=== PATIENT | male | born 1990 | race Caucasian/White ===

== ENCOUNTER 2016-08-18 19:52 | Emergency (ER) | payer MEDICAID ==
[2016-08-18 20:00] VITALS: BP 112/71; BMI 18.6
--- NOTE | 2016-08-18 20:30 | DR.GENAD ---
HPI - PCP Primary Care Physician: MARIANO - HPI Comment HPI Comment: PATIENT HAVING EPIGASTRIC AND RUQ ABDOMINAL PAIN RADIATING TO THE BACK FOR 4 DAYS THAT IS WORSE TODAY. VOMITUS IS GREENISH COLOR. NO FEVER. SYMTOM SIMILAR TO HIS MOTHERS WHEN SHE WAS HAVING GALL BLADDER PROBLEM. - Complaint/Symptoms Chief Complaint Doctors Comments: UPPER ABDOMINAL PAIN WITH NAUSEA AND VOMITING TIMES 4 DAYS. Chief Complaint:: PT STATES" I'M HAVING ALL THE SYMPTOMS MY MAMA HAD BEFORE SHE HAD HER GALLBL;ADDER REMOVED. PAIN THAT GOES FROM FRONT TO BACK AND A FEELING OF FULLNESS, NAUSEA AND VOMITING UP GREEN LOOKS LIKE POISON" - Nurses notes reviewed Nurses Notes Review: Yes - Source History Provided: Patient - Mode of Arrival Mode of Arrival: Ambulatory - Timing Onset of Chief Complaint: 08/15/16 Came on: Suddenly - Duration Duration: Constant Duration: Days PMH - PMH Past Medical History: Yes Past Medical History: GERD Past Surgical History: Yes Surgical History: Appendectomy - Family History History of Family Medical Conditions: Yes Family Medical History: Diabetes Mellitus - Social History Does patient currently use any type of tobacco product: Yes Have you used tobacco products in the last 12 months: Yes Type of Tobacco Use: Smokeless Does any household member use tobacco: No Alcohol Use: Occasionally Do you use any recreational Drugs:: No Lives With: Family Lives Where: Home - infectious screening In the last 2 months have you had wt loss of >10#?: NO Have you had fever, night sweats or hemotysis?: No Have you traveled outside the country in the last 6 months?: No Isolation: Standard ROS - Review of Systems Constitutional: Loss of Appetite. negative: Chills, Fever, Weakness, Fatigue Eyes: No Symptoms Reported. negative: Eye Pain, Discharge ENTM: No Symptoms Reported. negative: Ear Pain, Nose Discharge, Nose Congestion , Throat Pain Respiratoy: No Symptoms Reported. negative: Productive Cough, Short of Breath, Wheezing, Hemoptysis Cardiovascular: No Symptoms Reported Gastrointestinal/Abdominal: Abdominal Pain, Nausea, Vomiting Genitourinary: No Symptoms Reported. negative: Dysuria, Frequency, Hematuria Neurological: No Symptoms Reported Musculoskeletal: Muscle Pain Integumentary: No Symptoms Reported Hematologic/Lymphatic: No Symptoms Reported Endocrine: No Symptoms Reported All Other Systems: Reviewed and Negative PE - Vital Signs Vitals: Temperature 98.4 F Pulse Rate 99 Respiratory Rate 18 Blood Pressure [Left Arm] 110/59 Blood Pressure 112/71 O2 Sat by Pulse Oximetry 99 - General Limitations: No Limitations General Appearance: Alert - Head Head Exam: Normal Inspection - Eyes Eye exam: Normal Appearance - ENT ENT Exam: Normal External Ear Exam External Ear Exam: Normal External Inspection TM/Canal Exam: Bilateral Normal Nose Exam: Normal Nose Exam Mouth Exam: Normal Inspection Throat Exam: Normal Inspection - Neck Neck Exam: Trachea Midline - Chest Chest Inspection: Symmetric Chest Wall Rise - Respiratory Respiratory Exam: Normal Lung Sounds Bilat Respiratory Exam: Bilateral Clear to Auscultation - Cardiovascular Cardiovascular Exam: Regular Rate, Normal Rhythm, Normal Heart Sounds - Abdominal Exam Abdominal Exam: Normal Bowel Sounds, Soft, Tenderness Abdominal Tenderness: RUQ, Epigastrium, Moderate - Extremities Extremities Exam: Normal Inspection - Back Back Exam: Normal Inspection - Neurologic Neurological Exam: Alert, Oriented X3 - Psychiatric Psychiatric Exam: Anxious - Skin Skin Exam: Normal Color MDM - Additional Information Additional Information Obtained From: Family - Differential Diagnosis Differential Diagnosis: ABDOMINAL PAIN, BOWEL OBST, CHOLECYSTITIS, CHOLELITHIASIS PANCREATITIS Course - Treatment Treatment: SEE ORDERS - Education/Counseling Education/Counseling: Patient, Family, Education Educated On: Treatment, Diagnosis, Needs for Follow Up ROR - Labs Reviewed Laboratory Results Reviewed?: Yes Result Diagrams: 08/18/16 20:40 08/18/16 20:40 Laboratory: WBC 9.3 X10^3/uL (3.6-10.0) 08/18/16 20:40 RBC 4.98 X10^6/uL (4.7-6.0) 08/18/16 20:40 Hgb 14.0 g/dL (13.5-18.0) 08/18/16 20:40 Hct 41.4 % (42.0-54.0) L 08/18/16 20:40 MCV 83.3 fL (80.0-100.0) 08/18/16 20:40 MCH 28.1 pg (27.0-34.0) 08/18/16 20:40 MCHC 33.8 g/dL (33.0-35.0) 08/18/16 20:40 RDW 12.5 % (11.6-16.5) 08/18/16 20:40 Plt Count 206 X10^3/uL (150.0-450.0) 08/18/16 20:40 MPV 7.7 fL (7.4-11.0) 08/18/16 20:40 Neut % 63.6 % (42.0-75.0) 08/18/16 20:40 Lymph % 25.7 % (21.0-51.0) 08/18/16 20:40 Scurry % 9.1 % (0.0-13.0) 08/18/16 20:40 Eos % 1.1 % (0.9-2.9) 08/18/16 20:40 Baso % 0.5 % (0.2-1.0) 08/18/16 20:40 Neut # 5.9 x10^3/uL (2.2-4.8) H 08/18/16 20:40 Lymph # 2.4 X10^3/uL (1.3-2.9) 08/18/16 20:40 Scurry # 0.8 x10^3/uL (0.3-0.8) 08/18/16 20:40 Eos # 0.1 x10^3/uL (0.0-0.2) 08/18/16 20:40 Baso # 0.0 X10^3/uL (0.0-0.1) 08/18/16 20:40 Absolute Nucleated RBC 0.0 /100WBC 08/18/16 20:40 Sodium 141 mmol/L (136-145) 08/18/16 20:40 Corrected Sodium TNP 08/18/16 20:40 Potassium 4.7 mmol/L (3.5-5.1) 08/18/16 20:40 Chloride 104 mmol/L (98-107) 08/18/16 20:40 Carbon Dioxide 29.8 mmol/L (21-32) 08/18/16 20:40 BUN 18 mg/dL (7-18) 08/18/16 20:40 Creatinine 1.05 mg/dL (0.70-1.30) 08/18/16 20:40 Est GFR (MDRD) Af Amer > 60 (>60) 08/18/16 20:40 Est GFR (MDRD) Non-Af > 60 (>60) 08/18/16 20:40 Glucose 92 mg/dL (65-99) 08/18/16 20:40 Calcium 8.9 mg/dL (8.5-10.1) 08/18/16 20:40 Corrected Calcium TNP 08/18/16 20:40 Total Bilirubin 0.60 mg/dL (0.2-1.0) 08/18/16 20:40 AST 12 Units/L (15-37) L 08/18/16 20:40 ALT 19 Units/L (12-78) 08/18/16 20:40 Alkaline Phosphatase 77 Units/L (46-116) 08/18/16 20:40 Total Protein 7.6 g/dL (6.4-8.2) 08/18/16 20:40 Albumin 4.1 g/dL (3.4-5.0) 08/18/16 20:40 Globulin 3.5 g/dL (2.5-4.5) 08/18/16 20:40 Albumin/Globulin Ratio 1.2 Ratio (1.1-2.1) 08/18/16 20:40 Amylase 50 Units/L (25-115) 08/18/16 20:40 Lipase 88 Units/L (73-393) 08/18/16 20:40 Specimen Type Clean catch urine 08/18/16 20:40 Urine Color Yellow (YELLOW) 08/18/16 20:40 Urine Appearance Clear (CLEAR) 08/18/16 20:40 Urine pH 6.0 (5.0 - 8.0) 08/18/16 20:40 Ur Specific Unity 1.020 (1.000-1.030) 08/18/16 20:40 Urine Protein 1+ (NEGATIVE) 08/18/16 20:40 Urine Glucose (UA) Negative (NEGATIVE) 08/18/16 20:40 Urine Ketones Negative (NEGATIVE) 08/18/16 20:40 Urine Occult Blood 2+ (NEGATIVE) 08/18/16 20:40 Urine Nitrite Negative (NEGATIVE) 08/18/16 20:40 Urine Bilirubin Negative (NEGATIVE) 08/18/16 20:40 Urine Urobilinogen Normal (NORMAL) 08/18/16 20:40 Ur Leukocyte Esterase Negative (NEGATIVE) 08/18/16 20:40 Urine RBC None seen /HPF (NEGATIVE) 08/18/16 20:40 Urine WBC None seen /HPF (NEGATIVE) 08/18/16 20:40 Ur Squamous Epith Cells Rare /HPF (NEGATIVE) 08/18/16 20:40 Urine Bacteria Negative /HPF (NEGATIVE) 08/18/16 20:40 Ur Culture Indicated? No/not indicated 08/18/16 20:40 H. pylori IgG Antibody Negative (NEGATIVE) 08/18/16 20:40 - XRAY XRAY Interpreted by: Radiologist XRAY Findings: REPORT DISCUSS WITH PATIENT. - Diagnosis Discharge Problem: Abdominal pain Qualifiers: Abdominal location: right upper quadrant Qualified Code(s): R10.11 - Right upper quadrant pain Nausea & vomiting Qualifiers: Vomiting type: bilious vomiting Qualified Code(s): R11.14 - Bilious vomiting - Discharge Plan Disposition: HOME, SELF-CARE Condition: Stable Prescriptions: Acetaminophen W/ Codeine [Tylenol/Codeine #3 300-30 mg] 1 tab PO Q6H PRN #12 tab PRN Reason: Pain Ondansetron HCl [Zofran Tab 4 mg] 4 mg PO Q8H PRN #12 tab PRN Reason: Nausea/Vomiting Ranitidine HCl [ZANTAC TAB 150 MG *] 150 mg PO BID #60 tab - Follow ups/Referrals Follow ups/Referrals: NUVIA QUINTANA [Primary Care Provider] - 08/19/16 - Instructions Instructions: Abdominal Pain, Adult, [id number] Additional Instructions: RETURN TO ED IF WORSE.
[2016-08-18 20:47] LABS: BILIRUBIN,URINE NEGATIVE (NEGATIVE); BLOOD/HEMOGLOBIN,URINE 2+ (NEGATIVE); GLUCOSE, URINE NEGATIVE (NEGATIVE); KETONES,URINE NEGATIVE (NEGATIVE); LEUKOCYTE ESTERASE ,URINE NEGATIVE (NEGATIVE); NITRITES,URINE NEGATIVE (NEGATIVE); PROTEIN,URINE 1+ (NEGATIVE); UROBILINOGEN,URINE NORMAL (NORMAL)
[2016-08-18 20:48] LABS: BASOPHILS % (AUTO) 0.5 % (0.2-1.0); EOSINOPHILS # (AUTO) 0.1 x10^3/uL (0.0-0.2); EOSINOPHILS % (AUTO) 1.1 % (0.9-2.9); HEMATOCRIT 41.4 % (42.0-54.0); LYMPHOCYTES # (AUTO) 2.4 X10^3/uL (1.3-2.9); LYMPHOCYTES % (AUTO) 25.7 % (21.0-51.0); MEAN CORPUSCULAR HEMOGLOBIN 28.1 pg (27.0-34.0); MEAN CORPUSCULAR HGB CONC 33.8 g/dL (33.0-35.0); MEAN CORPUSCULAR VOLUME 83.3 fL (80.0-100.0); MEAN PLATELET VOLUME 7.7 fL (7.4-11.0); MONOCYTES # (AUTO) 0.8 x10^3/uL (0.3-0.8); MONOCYTES % (AUTO) 9.1 % (0.0-13.0); NEUTROPHILS # (AUTO) 5.9 x10^3/uL (2.2-4.8); NEUTROPHILS % (AUTO) 63.6 % (42.0-75.0); PLATELET COUNT 206 X10^3/uL (150.0-450.0); RED BLOOD COUNT 4.98 X10^6/uL (4.7-6.0); RED CELL DISTRIBUTION WIDTH 12.5 % (11.6-16.5); WHITE BLOOD COUNT 9.3 X10^3/uL (3.6-10.0)
[2016-08-18 20:53] LABS: APPEARANCE,URINE CLEAR (CLEAR); BACTERIA,URINE NEGATIVE /HPF (NEGATIVE); COLOR,URINE YELLOW (YELLOW); RBC,URINE NONE SEEN /HPF (NEGATIVE); SQUAMOUS EPITHELIAL CELL,UR RARE /HPF (NEGATIVE)
[2016-08-18 20:59] LABS: ALANINE AMINOTRANSFERASE 19 Units/L (12-78); ALBUMIN 4.1 g/dL (3.4-5.0); ALKALINE PHOSPHATASE 77 Units/L (46-116); AMYLASE 50 Units/L (25-115); ASPARTATE AMINO TRANSFERASE 12 Units/L (15-37); BLOOD UREA NITROGEN 18 mg/dL (7-18); CALCIUM 8.9 mg/dL (8.5-10.1); CARBON DIOXIDE 29.8 mmol/L (21-32); CHLORIDE 104 mmol/L (98-107); CREATININE 1.05 mg/dL (0.70-1.30); GLUCOSE 92 mg/dL (65-99); LIPASE 88 Units/L (73-393); SODIUM 141 mmol/L (136-145); TOTAL PROTEIN 7.6 g/dL (6.4-8.2); eGFR BLACK RACES > 60 (>60); eGFR NON BLACK RACES > 60 (>60)
--- NOTE | 2016-08-18 22:04 | CT ---
EXAM: CT ABDOMEN AND PELVIS WITHOUT CONTRAST INDICATION: Abdominal pain COMPARISION: No priors available for comparison TECHNIQUE: Axial CT examination of the abdomen and pelvis was performed without intravenous contrast. Coronal a nd sagittal reconstructions were created using the axial data. FINDINGS: The lung bases are clear. The liver, spleen, pancreas, adrenal glands, kidneys, and gallbladder are normal. There is no evidence of biliary ductal dilatation. The aorta and inferior vena cava are norm al in caliber. The bowel loops are nonobstructed. No abnormal mass, lymphadenopathy, or fluid collection. Urinary bladder is normal. The appendix has been removed. The regional skeleton is intact. IMPRESSION: Normal CT examination of the abdomen and pelvis. Reported By:
[2016-08-18] MEDS ORDERED: LEVSIN/MAALOX/LIDOC VISC PO ONE (22:12)
[2016-08-18] MEDS ORDERED: PEPCID TAB 20 MG PO ONE (22:13)
[2016-08-18] MEDS ORDERED: LEVSIN/MAALOX/LIDOC VISC ONE (22:14)
[2016-08-18] MEDS ORDERED: PEPCID TAB 20 MG ONE (22:14)
[2016-08-18] MEDS ORDERED: TORADOL 60 MG VIAL IM ONE (22:37)
[2016-08-18] MEDS ORDERED: TORADOL 60 MG VIAL ONE (22:37)
== END 2016-08-18 22:52 | disposition home or self-care (01) ==
LOC: ER 19:52
DX: R10.11 Right upper quadrant pain (principal); R11.14 Bilious vomiting
CPT/HCPCS: 36415; 74176; 80053; 81001; 82150; 83690; 85025; 86677; 96372; 99283; J1885

== ENCOUNTER → 2016-09-15 | Outpatient (CLI) | payer MEDICAID ==
[2016-08-18 20:00] VITALS: BP 112/71
--- NOTE | 2016-09-15 12:47 | RAD ---
HISTORY: Abdominal pain, constipation, status post cholecystectomy 1 week ago. Study: Acute abdominal series Comparison: Chest x-ray done July 28, 2016. CT abdomen and pelvis done August 18, 2016. Findings: The trachea is midline. The cardiac silhouette is unremarkable. There is mild hyperinflation of th e lungs without infiltrate. There is a very mild thoracolumbar scoliosis.. Flat plate and upright evaluation of the abdomen demonstrates a increase in small bowel gas present in the mid epigastric region. There is an abundance of stool present throughout the colon. No eviden ce of bowel obstruction or perforation is seen. There are surgical clips from cholecystectomy.. No pathological soft tissue mass or calcification can be observed. The bony structures are grossly int act. IMPRESSION: 1. Mild hyperinflation of the lungs without acute cardiopulmonary disease. 2. Mild small bowel ileus pattern. There is an abundance of stool present throughout the colon. No bowel obstruction or perforation is seen. Reported By:
== END ==
LOC: RAD 12:27
PROVIDERS: ATTEND Specialist
DX: R10.84 Generalized abdominal pain (principal); K59.09 Other constipation; Z90.49 Acquired absence of other specified parts of digestive tract
CPT/HCPCS: 74022

== ENCOUNTER → 2017-05-11 | Outpatient (CLI) | payer MEDICAID ==
--- NOTE | 2017-05-11 15:02 | RAD ---
Examination: Abdomen with PA chest History: Abdominal pain PA chest: Normal heart size, clear lungs and pleural spaces. Abdomen: Supine and upright views demonstrate fecal distention of the colon. There is no evidence for distal mechanical obstruction, localized ileus or intestinal perforation. There are surgical clips i n the right upper abdomen. No ascites or pathologic calcification is seen. Impression: Negative PA chest. Postsurgical findings right upper abdomen. Fecal distention of colon c onsistent with constipation; correlate clinically. Reported By:
== END ==
LOC: RAD 14:27
PROVIDERS: ATTEND Nurse Practitioner Family
DX: R10.84 Generalized abdominal pain (principal)
CPT/HCPCS: 74022